=== PATIENT | female | born 2000 | race Two or more races ===

== ENCOUNTER 2023-01-28 08:49 | Emergency (ER) | payer OTHER ==
[2023-01-28 09:00] VITALS: BP 120/77; PULSE 91; RESP 18; TEMP 98.2; BMI 23.5
== END 2023-01-28 09:45 | disposition home or self-care (01) ==
LOC: JER 08:49
DX: H66.001 Acute suppurative otitis media without spontaneous rupture of ear drum, right ear (principal); H10.31 Unspecified acute conjunctivitis, right eye; J06.9 Acute upper respiratory infection, unspecified; Z20.822 Contact with and (suspected) exposure to COVID-19
CPT/HCPCS: 0241U-QW; 99283-25

== ENCOUNTER 2023-12-15 21:29 | Emergency (ER) | payer OTHER ==
[2023-12-15 21:33] VITALS: RESP 18; BMI 20.3
[2023-12-15] MEDS ORDERED: ACETAMINOPHEN INJECTION 100 ML IVPB ONE (22:36)
[2023-12-15] MEDS: ACETAMINOPHEN 1000 MG/100 ML BAG IVPB ONE (22:52)
[2023-12-15] MEDS: LACTATED RINGERS SOLUTION 1,000 ML/1,000 ML INFUS.BAG IV STA (22:52)
[2023-12-15 22:57] LABS: BASO % 0.3 % (0-2.0); EOS % 0.1 % (0-4.5); HEMATOCRIT 40.6 % (32.4-45.2); HEMOGLOBIN 13.8 GM/dL (10.7-15.3); LYMPH % 40.9 % (8-40); MCH 29.6 pg (25.7-33.7); MCHC 33.9 g/dl (32.0-36.0); MEAN CELL VOLUME 87.1 fl (80-96); MEAN PLT VOLUME 8.1 fl (7.5-11.1); MONO % 10.7 % (3.8-10.2); PLATELET COUNT 219 10^3/uL (134-434); RBC 4.65 M/mm3 (3.60-5.2); RDW 12.3 % (11.6-15.6); WHITE BLOOD COUNT 3.3 K/mm3 (4.0-10.0)
[2023-12-15 23:17] LABS: ALBUMIN 3.4 g/dl (3.4-5.0); BLOOD UREA NITROGEN 9.5 mg/dL (7-18); CALCIUM 8.4 mg/dL (8.5-10.1)
[2023-12-15 23:20] LABS: CREATININE 0.6 mg/dL (0.55-1.3); PHOSPHOROUS 2.6 mg/dL (2.5-4.9)
[2023-12-15 23:22] LABS: BILIRUBIN,TOTAL 0.4 mg/dL (0.2-1)
[2023-12-15] MEDS ORDERED: ONDANSETRON 4 MG/2 ML VIAL ONE (23:59)
[2023-12-15] MEDS: ONDANSETRON 4 MG/2 ML VIAL IVPUSH ONE (23:59)
[2023-12-16 00:09] VITALS: BP 111/67; PULSE 75; TEMP 98
== END 2023-12-16 00:21 | disposition home or self-care (01) ==
LOC: JER 21:29
PROC: 3E033NZ Introduction of Analgesics, Hypnotics, Sedatives into Peripheral Vein, Percutaneous Approach (ICD-10-PCS; principal; 2023-12-15)
PROC: 3E033GC Introduction of Other Therapeutic Substance into Peripheral Vein, Percutaneous Approach (ICD-10-PCS; 2023-12-15)
PROC: 3E0337Z Introduction of Electrolytic and Water Balance Substance into Peripheral Vein, Percutaneous Approach (ICD-10-PCS; 2023-12-15)
DX: R11.2 Nausea with vomiting, unspecified (principal); R53.83 Other fatigue; R05.9 Cough, unspecified; R50.9 Fever, unspecified; J10.1 Influenza due to other identified influenza virus with other respiratory manifestations; M79.10 Myalgia, unspecified site; Z20.822 Contact with and (suspected) exposure to COVID-19
CPT/HCPCS: 0241U-QW; 36415; 71045-TC-FY; 80053; 83735; 84100; 85025; 99284-25; J0131